=== PATIENT | male | born 1960 | race African-American/Black ===

== ENCOUNTER 2020-09-25 10:42 | Emergency (ER) | payer BC, SELFPAY ==
[2020-09-25 12:18] LABS: #Eosinphils 0.1 thou/uL (0.0-0.7); #Lymphocytes 0.9 thou/uL (1.20-3.40); #Monocytes 1.8 thou/uL (0.11-0.59); %Basophils 0.2 % (0.0-1.0); %Eosinophils 0.5 % (0.0-10.0); %Lymphocytes 5.4 % (21.0-51.0); %Monocytes 11.6 % (0.0-10.0); %Neutrophils 82.2 % (42.0-75.0); Hemoglobin 10.1 g/dL (14.0-18.0); Mean Corpuscular HGB CONC 33.2 g/dL (32.0-36.0); Mean Corpuscular Hemoglobin 31.1 pg (27.0-31.0); Mean Corpuscular Volume 93.6 fL (78.0-98.0); Platelet Count 706 thou/uL (130-400); RBC Distribution Width 12.8 % (11.5-14.5); Red Blood Cell (RBC) Count 3.25 mill/uL (4.70-6.10); White Blood Cell (WBC) Count 15.8 thou/uL (4.8-10.8)
[2020-09-25] MEDS ORDERED: Vancomycin 1.5 GRAM/300 ML BAG 1.5 GM in Premix Bag 1 BAG IVPB SCH (12:45)
[2020-09-25 12:46] LABS: ALT (SGPT) 49 U/L (8-55); AST (SGOT) 44 U/L (5-34); Albumin 3.8 g/dL (3.5-5.0); Alkaline Phosphatase 88 U/L (40-110); Anion Gap 15 mmol/L (10-20); BUN (Urea Nitrogen) 53 mg/dL (8.4-25.7); Bilirubin, Total 0.6 mg/dL (0.2-1.2); Calc. Creatinine Clearance 0 mL/min (70-130); Calcium 9.6 mg/dL (7.8-10.44); Carbon Dioxide 29 mmol/L (22-29); Chloride 93 mmol/L (98-107); Globulin 5.1 g/dL (2.4-3.5); Glucose 217 mg/dL (70-105); Lipase 96 U/L (8-78); Potassium 4.3 mmol/L (3.5-5.1); Protein, Total 8.9 g/dL (6.0-8.3); Sodium 133 mmol/L (136-145)
[2020-09-25] MEDS ORDERED: Iopamidol-370 76% 500 ML 1 ML ONE (13:01)
[2020-09-25] MEDS ORDERED: Cefepime 2 GM VIAL ONE (13:01)
--- NOTE | 2020-09-25 13:47 | CT ---
CTA OF THE CHEST AND ABDOMEN UTILIZING AN AORTIC DISSECTION PROTOCOL AND 3-D REFORMATTED IMAGING INDICATION: History of aortic dissection status post surgical repair on September 12, 2020 now with co mplaints of lower abdominal pain and constipation COMPARISON: Comparison: Prior CT a aortic dissection protocol dated September 12, 2020 FINDINGS: Aorta: There is postprocedural change of an open ascending aortic aneurysmal repair since the prior e xam. There is prominent para-aortic fluid collection surrounding the ascending aorta with scattered internal gas. The true lumen of the aorta remains patent. The small penetrating atheromatous ulcer in volving the anterior margin of the distal aortic arch is slightly larger measuring 9 mm were previously measured 6 mm. The thrombosed dissection flap involving the mid aortic arch that extends t hrough the descending thoracic aorta into the suprarenal abdominal aorta is largely stable. Previously seen thrombus within the celiac artery is no longer present. The SMA, DIOGENES and renal arteri es are patent. Central pulmonary artery: No central pulmonary embolus demonstrated. Additional thorax findings: There is subsegmental volume loss within both lower lobes. There is calci fied granuloma in the right lung apex. Additional abdominal findings: No focal hepatic lesion is evident. Pancreas, adrenal glands and kidne ys appear within normal limits. There are stable granuloma within the spleen. Osseous structures: No acute osseous abnormality. IMPRESSION: 1. Postprocedural change of an interval open ascending aortic aneurysmal repair. There is a prominent periaortic fluid collection is contiguous with the patient's aortic dissection flap. There is gas present within the collection suspicious for superimposed infection surrounding the operative site. 2. Slight interval enlargement of a small outpouching protruding from the true lumen of the distal th oracic aortic arch into the thrombosed false lumen of the aortic dissection. Findings are suspicious for an enlarging penetrating atheromatous ulcer. 3. Previously seen filling defect within the proximal celiac artery on the prior examination is no lo nger present. 4. Findings called to Dr. Borges at 3:35 PM on September 25, 2020. 5. Vascular surgery consultation is recommended.
[2020-09-25 15:08] LABS: Bacteria/HPF None Seen HPF (None Seen); Bilirubin Negative (Negative); Blood, Urine Negative (Negative); Clarity Clear (Clear); Glucose, Urine (Dipstick) 30 mg/dL (Negative); Ketone, Urine Negative (Negative); Leukocyte Negative Leu/uL (Negative); Nitrite Negative (Negative); Protein, Urine (Dipstick) 30 mg/dL (Neg-Trace); RBC/HPF 0-3 HPF (0-3); Specific Gravity, Urine 1.038 (1.002-1.036); Squamous Epithelial None Seen HPF (0-3); Urobilinogen Normal mg/dL (Less than 2); WBC/HPF 0-3 HPF (0-3); pH, Urine 6.5 (5.0-9.0)
[2020-09-25 15:39] LABS: Lactic Acid 3.4 mmol/L (0.5-2.2)
== END 2020-09-25 16:14 | disposition short-term general hospital (02) ==
LOC: ERS 10:42
DX: T81.40XA Infection following a procedure, unspecified, initial encounter (principal); T81.44XA Sepsis following a procedure, initial encounter; A41.9 Sepsis, unspecified organism; R65.20 Severe sepsis without septic shock; Z79.899 Other long term (current) drug therapy; Z79.82 Long term (current) use of aspirin
CPT/HCPCS: 36415; 71275; 74174; 80053; 81003; 81015; 83605; 83690; 85025; 87040; 87086; 93005; 94760; 96365; 96366; 96367; J0692; J3370; Q9967

== ENCOUNTER 2023-04-23 11:27 | Outpatient (CLI) | payer BC | END 2023-04-23 11:28 | disposition home or self-care (01) | LOC: SCSRAD 11:27 | PROVIDERS: ATTEND Family Medicine Sports Medicine | DX: M54.2 Cervicalgia (principal); M47.812 Spondylosis without myelopathy or radiculopathy, cervical region | CPT/HCPCS: 72050 ==